=== PATIENT | male | born 1970 | race Caucasian/White ===

== ENCOUNTER → 2016-10-26 | Outpatient (CLI) | payer OTHER ==
--- NOTE | 2016-10-26 09:23 | CT ---
EXAMINATION TYPE: CT ChestAbdPelvis w con DATE OF EXAM: 10/26/2016 9:05 AM COMPARISON: Previous study dated 05/29/2016 HISTORY: Lymphoma CT DLP: 578.9 mGycm Automated exposure control for dose reduction was used. TECHNIQUE: Helical acquisition through the abdomen and pelvis was obtained without oral contrast but following the intravenous administration of 100 mL of Omnipaque 300. The data was formatted in the a xial, coronal and sagittal projections. FINDINGS: There is a stable 3.1 mm nodule in the anterolateral aspect of the right middle lobe, best seen on image 38. No other definite parenchymal lesions are seen. There is dependent atelectasis at t he lung bases. There is a Port-A-Cath in place on the right. Its tip is at the cavoatrial junction. There is no significant axillary, mediastinal or hilar adenopathy. There is no pleural or pericardial fluid. The heart is not enlarged. Within the abdomen, there is fatty infiltration of the liver. The spleen and gallbladder are unremark able. Both adrenal glands appear normal. Both kidneys demonstrate function and appear morphologically normal. The pancreas is unremarkable. There is no significant retroperitoneal, iliac or inguinal adenopathy. The bladder is unremarkable. There is no significant diverticular disease and there is no radiographic evidence of diverticulitis. The appendix is unremarkable. Small bowel loops appear normal. There is no free fluid and no free air identified. There is degenerative disc disease, facet arthropathy and diffuse hypertrophic spondylosis throughout the spine. No bony destructive lesion is seen. IMPRESSION: 1. STABLE, SOLITARY, 3.1 MM NODULE IN THE RIGHT MIDDLE LOBE. 2. NO SIGNIFICANT ADENOPATHY. 3. FATTY INFILTRATION OF THE LIVER. 4. DEGENERATIVE CHANGE WITHIN THE SPINE.
== END | disposition home or self-care (01) ==
LOC: RADCTMAIN 07:09
PROVIDERS: ATTEND Internal Medicine Hematology & Oncology
DX: K76.0 Fatty (change of) liver, not elsewhere classified (principal); R91.1 Solitary pulmonary nodule; C85.90 Non-Hodgkin lymphoma, unspecified, unspecified site
CPT/HCPCS: 71260; 74177; Q9967

== ENCOUNTER → 2017-07-02 | Outpatient (CLI) | payer OTHER ==
--- NOTE | 2017-07-02 13:06 | CT ---
EXAMINATION TYPE: CT ChestAbdPelvis w con DATE OF EXAM: 07/02/2017 COMPARISON: 11/03/2016 HISTORY: Lymphoma follow up CT DLP: 607.6 mGycm. Automated Exposure Control for Dose Reduction was Utilized. CONTRAST: CT scan of the thorax, abdomen and pelvis is performed with IV Contrast, patient injected with 100 mL of Omnipaque 300. FINDINGS: LUNGS: The lungs are grossly clear, there is no concerning parenchymal mass or nodule identified. T here is no pleural effusion or pneumothorax seen. The tracheobronchial tree is patent. There is a 3 mm nodule along the interlobar fissure on the right middle lobe and right upper lobe that retrospecti vely is unchanged from the prior of 10/26/2016 and may represent an intrafissural lymph node. This is seen on series 4 image 29. The previously seen 3 mm right middle lobe pulmonary nodules also unchange d on series 4 image 33. Additional 3 mm pulmonary nodule within the right lower lobe on series 4 imag e 41 is also unchanged retrospectively from the prior. Lastly within the right lower lobe there is an other 3 mm pulmonary nodule on series 4 image 43 that is retrospectively unchanged from the prior. Bi basilar subsegmental dependent atelectasis is noted. Within the left lower lobe there is a 3 mm pulmo nary nodule on series 4 image 33 that is retrospectively unchanged from the prior. MEDIASTINUM: There are no greater than 1 cm hilar or mediastinal lymph nodes. No pericardial effusi on is seen. Right-sided Mediport terminates in the cavoatrial junction. Heart is mildly enlarged. OTHER: Incidental note is made of bilateral mild retroareolar gynecomastia. LIVER/GB: There is mild decreased attenuation/enhancement comparison to that of the spleen most commo nly seen in mild hepatic steatosis. Gallbladder is unremarkable without cholelithiasis. PANCREAS: No significant abnormality is seen. No ductal dilatation. SPLEEN: No significant abnormality is seen. No splenomegaly. ADRENALS: No significant abnormality is seen. No adrenal gland nodules or thickening. KIDNEYS: No significant abnormality is seen. Kidneys enhance and excrete symmetrically. No hydronephr osis. BOWEL: No significant abnormality is seen. GENITAL ORGANS: No gross abnormality seen. LYMPH NODES: No greater than 1cm abdominal or pelvic lymph nodes are appreciated. OSSEOUS STRUCTURES: Osseous structures are intact. No new suspicious osseous lesion is seen. Mild mul tilevel degenerative changes of the lumbosacral spine are noted. IMPRESSION: 1. No evidence of recurrent adenopathy within the chest, abdomen, or pelvis. 2. Multiple bilateral subcentimeter pulmonary nodules are retrospectively unchanged from the prior ex am and more remote exams from 2014, 2016. These are favored to be benign although surveillance exam in one year is recommended.
== END | disposition home or self-care (01) ==
LOC: RADCTMAIN 10:59
PROVIDERS: ATTEND Internal Medicine Hematology & Oncology
DX: C83.39 Diffuse large B-cell lymphoma, extranodal and solid organ sites (principal); R91.8 Other nonspecific abnormal finding of lung field
CPT/HCPCS: 71260; 74177; Q9967; J1642

== ENCOUNTER 2018-04-18 07:03 | Day surgery (SDC) | payer OTHER ==
[2018-04-15 12:00] VITALS: BMI 27.3
--- NOTE | 2018-04-18 05:30 | P.GSHP ---
History of Present Illness H&P Date: 04/18/18 CHIEF COMPLAINT: Lymphoma. HISTORY OF PRESENT ILLNESS: The patient is a 47-year-old male diagnosed with lymphoma. He presents for removal of his Mediport. PAST MEDICAL HISTORY: See list PAST SURGICAL HISTORY: See list CURRENT MEDICATIONS: See list. ALLERGIES: See list. SOCIAL HISTORY: No active tobacco or alcohol use. FAMILY HISTORY: Noncontributory. REVIEW OF ORGAN SYSTEMS: CONSTITUTIONAL: Has weight loss. PHYSICAL EXAMINATION: Vital signs: Stable GENERAL: Well developed and in no acute distress. Pleasant. HEENT: No sclera icterus. Extraocular movements grossly intact. Moist buccal mucosa. Head is atraumatic, normocephalic. Hears conversational speech. No nasal drainage. NECK: Supple without lymphadenopathy. No JV distention. CHEST: Non-labored respirations and equal bilateral excursions. CARDIOVASCULAR: Regular rate and rhythm. Palpable 2+ radial pulses. ABDOMEN: Nontender. MUSCULOSKELETAL: No clubbing, cyanosis or edema. NEUROLOGIC: No focal or lateralizing signs. PSYCH: Appropriate affect. Alert and oriented to person, place and time. ASSESSMENT: 1. Lymphoma. PLAN: 1. Agree with Port-A-Cath removal Past Medical History Past Medical History: Blood Disorder, Cancer Additional Past Medical History / Comment(s): LYMPHOMA, CHEMO TX FOLLOWING, STATES LAST ONE APPROX 2013, STATES HAS BLOOD DISORDER, UNSURE OF NAME History of Any Multi-Drug Resistant Organisms: None Reported Additional Past Surgical History / Comment(s): BX OF LUMP ON BACK (SEPTEMBER 2014), BONE MARROW BX, PORTACATH INSERTION Past Anesthesia/Blood Transfusion Reactions: Motion Sickness Additional Past Anesthesia/Blood Transfusion Reaction / Comment(s): HEADACHE POST-OP Smoking Status: Former smoker - Past Family History Mother Family Medical History: No Reported History Medications and Allergies Home Medications Medication Instructions Recorded Confirmed Type Aspirin [Adult Low Dose Aspirin EC] 81 mg PO DAILY 04/15/18 04/15/18 History Allergies Allergy/AdvReac Type Severity Reaction Status Date / Time No Known Allergies Allergy Verified 04/15/18 11:55
[~2018-04-18 07:03] MED LIST: DEXAMETHASONE SOD PHOSPHATE 10 MG/ML 1 ML VIAL IV ONE; HYDROmorphone 1 MG/ML 1 ML SYRINGE IVP PRN; LACTATED RINGERS 1,000 ML IV SCH; MIDAZOLAM 2 MG/2 ML VIAL IV PRN; ONDANSETRON 4 MG/2 ML VIAL IVP ONE; SCOPOLAMINE 1.5MG/72HR PATCH TRANSDERM ONE; ceFAZolin IN SWFI 2 GM/20 ML SYRINGE IVP ONE
[2018-04-18 07:29] VITALS: RESP 18; TEMP 97.1
[2018-04-18] MEDS ORDERED: LIDOCAINE 1% 20 ML VIAL (10MG/ML) FOR IV START INTRADERMA ONE (07:31)
[2018-04-18] MEDS ORDERED: fentaNYL (PF) 50 MCG/ML 2 ML AMP ONE (09:03)
[2018-04-18] MEDS ORDERED: MIDAZOLAM 2 MG/2 ML VIAL ONE (09:03)
[2018-04-18] MEDS ORDERED: PROPOFOL 10 MG/ML 20 ML VIAL IV ONE (09:03)
[2018-04-18] MEDS ORDERED: BUPIVACAIN-EPI 0.25%-1:200,000 30 ML VIAL SQ ONE (09:19)
--- NOTE | 2018-04-18 09:43 | P.OP ---
Date of Procedure: 04/18/18 Description of Procedure: SURGEON: ANNE MENDOSA MD [employer]ER: None. PREOPERATIVE DIAGNOSIS: 1. Lymphoma 2. Chemotherapeutic venous access. POSTOPERATIVE DIAGNOSIS: 1. Lymphoma 2. Chemotherapeutic venous access. OPERATION: Removal of right internal jugular vein Port-A-Cath. ANESTHESIA: MAC with 30 mL local. ESTIMATED BLOOD LOSS: 2 mL SPECIMENS REMOVED: Port-A-Cath COMPLICATIONS: None. INDICATIONS: The patient is a 47-year-old male who completed chemotherapy. He now has elected for removal. Benefits and risks were described. Informed consent was obtained. DESCRIPTION OF PROCEDURE: Patient was brought to the operating room, laid in supine position. After IV sedation the chest wall on the left side was prepped and draped in standard sterile fashion. Prior to incision, a timeout protocol was confirmed with surgical team regarding the patient's name including procedures to be performed. As this was a clean case, no further antibiotics were required. Additionally, early ambulation was encouraged for DVT prophylaxis. Attention was brought to the area of the port site, whereby a total of 30 mL of local was infiltrated into the skin for a field block. A #15 blade was used to incise along the previous cicatrix. Electro- Bovie cautery was used to control for hemostasis. Adhesions were lysed around the Mediport. The port was extracted without sequelae. Pressure for 2 minutes was placed along the left internal jugular vein. Hemostasis was checked along the pocket of the Port-A-Cath site. The wound was closed in layers using 3-0 Vicryl for the deep subcutaneous tissues followed by 4-0 Monocryl in a running subcuticular fashion. Dermabond was applied to the skin. At the end of the procedure needle, sponge and instrument counts were verified correct by the surgical consultant. The patient had tolerated the procedure well and was taken to postanesthesia care in stable condition. FINDINGS: 1. Unremarkable Port-a-cath extraction. Plan - Discharge Summary New Discharge Prescriptions: New Ibuprofen [Motrin] 600 mg PO Q8HR PRN #20 tab PRN Reason: Pain No Action Aspirin [Adult Low Dose Aspirin EC] 81 mg PO DAILY Discharge Medication List Aspirin [Adult Low Dose Aspirin EC] 81 mg PO DAILY 04/15/18 [History] Ibuprofen [Motrin] 600 mg PO Q8HR PRN #20 tab 11/02/18 [Rx] Follow up Appointment(s)/Referral(s): Anne Mendosa MD [STAFF PHYSICIAN] - As Needed Patient Instructions/Handouts: *Surgery [facility] - (Anesthesia) Discharge Instructions Outpatient Surgery, Care After Central Line Removal (DC) Activity/Diet/Wound Care/Special Instructions: No sports activities for one week. No cross bow until 04/25/2018. Remove dressing 04/21/2018. May shower. No bath tub soaks. Discharge Disposition: HOME SELF-CARE
[2018-04-18 09:58] VITALS: BP 106/77; PULSE 73
== END 2018-04-18 10:47 | disposition home or self-care (01) ==
LOC: OR 07:03
PROVIDERS: ATTEND Surgery Plastic and Reconstructive Surgery
DX: Z45.2 Encounter for adjustment and management of vascular access device (principal); C85.90 Non-Hodgkin lymphoma, unspecified, unspecified site; Z92.21 Personal history of antineoplastic chemotherapy; Z87.891 Personal history of nicotine dependence; Z79.82 Long term (current) use of aspirin
CPT/HCPCS: 36590; J2250; J1100; J2405; J3010; J2704; J0690